=== PATIENT | female | born 1950 | race Caucasian/White ===

== ENCOUNTER 2018-08-01 17:02 | Emergency (ER) | payer MEDICARE, OTHER ==
[~2018-08-01] VITALS: Ht 162.6 cm; Wt 136.1 kg
[2018-08-01] MEDS ORDERED: OLMESARTAN-HCT1 EAC1 PO (17:18)
[2018-08-01] MEDS ORDERED: LEVSOD125 PO (17:18)
[2018-08-01] MEDS ORDERED: AMLO5 PO (17:19)
[2018-08-01] MEDS ORDERED: Norco 5-325 Ta1 EACH PO (20:07)
[2018-08-01] MEDS ORDERED: IBUP600 PO (20:07)
== END 2018-08-01 20:23 | disposition home or self-care (01) ==
LOC: ER 17:02
DX: S43.014A Anterior dislocation of right humerus, initial encounter (principal); Z79.899 Other long term (current) drug therapy; W19.XXXA Unspecified fall, initial encounter
CPT/HCPCS: 23650; 73020; 73030; 99152; 99283-25; J7030

== ENCOUNTER 2019-03-04 10:02 | Inpatient (IN) | payer MEDICARE, OTHER ==
[~2019-03-04] VITALS: Ht 162.6 cm; Wt 131.5 kg
[~2019-03-04 10:02] MED LIST: AMLO5 PO; Diovan Hct 1601 EACH PO; IBUP600 PO; LEVSOD125 PO; Norco 5-325 Ta1 EACH PO; OLMESARTAN-HCT1 EAC1 PO; [UNRECOGNIZED DRUG - OTHER] PO
--- NOTE | 2019-03-04 11:41 | NUR ---
Ambulatory in Day Surgery History, Chart, Medications and Allergies reviewed before start of procedure. Lungs clear T/O to Auscultation. Patient confirms NPO status and agrees with scheduled surgery. Pre-Op teaching done. Pt verbalizes understanding.
[2019-03-04 17:45] LABS: Hematocrit 29.7 % (33.0-51.0); Hemoglobin 9.6 g/dL (11.5-16.0)
--- NOTE | 2019-03-05 04:30 | NUR ---
SHIFT SUMMARY PT IS POD#1 R SHOULDER REPAIR. DRESSINGS ARE C/D/I. PT DENIES PAIN, C/O INTERMITTENT NAUSEA WITH TWO EPISODES OF VOMITING THIS SHIFT, RELIEF ACHIEVED WITH IV MEDICATION PER ORDERS. BP TRENDING HYPO THIS SHIFT, PT IS ASYMPTOMATIC, O2 SATS >90% ON 2L. PT HAS HX OF SLEEP APNEA, MAINTAINED O2 SATS >96% ON RA VIA CPAP DURING SLEEP. HEART RATE OCCASIONALLY DROPS TO 49-50 BPM WHILE ASLEEP, RETURNS TO BASELINE UPON AWAKENING. PT REQUIRES SBA TO BATHROOM, PT IS CONTINENT OF BOWEL AND BLADDER AND DOES NOT USE ASSISTIVE DEVICES AT BASELINE. TOLERATING SMALL AMOUNTS OF CLEAR LIQUIDS AT THIS TIME.
[2019-03-05 05:00] LABS: BASOPHILS PERCENT AUTO 0 % (0-2); EOSINOPHILS PERCENT AUTO 0 % (0-6); Hematocrit 24.3 % (33.0-51.0); Hemoglobin 7.8 g/dL (11.5-16.0); IMMATURE GRAN ABSOLUTE AUTO 0.04 K/mm3 (0.00-0.10); IMMATURE GRAN PERCENT AUTO 0 % (0-1); LYMPHOCYTES ABSOLUTE AUTO 0.47 K/mm3 (0.84-5.20); LYMPHOCYTES PERCENT AUTO 4 % (21-46); MONOCYTES ABSOLUTE AUTO 0.46 K/mm3 (0.16-1.47); MONOCYTES PERCENT AUTO 4 % (4-13); Mean Corpuscular HGB 27.4 pg (26.0-34.0); Mean Corpuscular HGB Conc 32.1 g/dL (31.5-36.5); Mean Corpuscular Volume 85 fL (80-100); NEUTROPHILS ABSOLUTE AUTO 9.75 K/mm3 (1.96-9.15); NEUTROPHILS PERCENT AUTO 91 % (41-73); Platelet Count 259 K/mm3 (150-400); RDW Coefficient Variation 13.5 % (11.7-14.2); RDW Standard Deviation 42.2 fL (35.1-46.3); Red Blood Cell Count 2.85 M/mm3 (3.80-5.20); White Blood Cell Count 10.72 K/mm3 (4.00-11.30)
[2019-03-05 05:37] LABS: Magnesium, Blood 1.9 mg/dL (1.6-2.4)
[2019-03-05 05:38] LABS: Anion Gap 8 mmol/L (6-16); Blood Urea Nitrogen 19 mg/dL (8-24); Bun/Creatinine Ratio 20.3 (12.0-20.0); CO2, Blood 23 mmol/L (21-32); Calcium, Blood 8.2 mg/dL (8.5-10.1); Chloride, Blood 100 mmol/L (98-108); Creatinine, Blood 0.94 mg/dL (0.40-1.00); Glomerular Filtration Rate >60 (60-); Glucose, Blood 197 mg/dL (70-99); Potassium, Blood 4.6 mmol/L (3.5-5.5); Sodium, Blood 131 mmol/L (136-145)
--- NOTE | 2019-03-05 08:48 | NUR ---
THERAPY WORKING WITH PT.
--- NOTE | 2019-03-05 10:42 | NUR ---
PHYSICAL THERAPY RECENTLY WORKED WITH PT.
--- NOTE | 2019-03-05 13:35 | NUR ---
PHYSICAL THERAPY HERE TO WORK WITH PT.
--- NOTE | 2019-03-05 13:41 | NUR ---
PT EATING AND DRINKING, VOIDING. PT BEEN ASSISTED WITH ADL'S PRN. PT BEEN ENC TO ELEVATE LEGS. PT BEEN REPORTING PAIN TOLERABLE. PT HAS SHOULDER IMMOBILIZER TO R ARM. PT BEEN UP TO CHAIR SINCE THIS AM. OTHER RN S.W. TO ASSUME CARE.
--- NOTE | 2019-03-05 14:12 | NUR ---
THERAPY REPORTED CLEARED TO GO HOME AND THAT PT WILL HAVE FAMILY/FRIEND RISK CONTROL MANAGER NEW CANE TO USE AT HOME.
--- NOTE | 2019-03-05 15:05 | NUR ---
OTHER NINOSKA Feliciano GIVEN REPORT AND IS ASSUMING CARE OF PT AT THIS TIME.
[2019-03-05] MEDS ORDERED: OXYC5 PO (15:55)
[2019-03-05] MEDS ORDERED: ASPI325 PO (15:56)
--- NOTE | 2019-03-05 16:53 | NUR ---
DISCHARGE SUMMARY PT A&OX4, VSS, LEFT FLOOR VIA WC WITH RN TO GO HOME WITH NEIGHBOR WITH PERSONAL POSSESSIONS AND DISCHARGE PACKET WITH 1 NARC SCRIPT AND 2 AQUACEL DRESSINGS. DISCHARGE INSTRUCTIONS PROVIDED. PT REP UNDERSTANDING THOSE INSTRUCTIONS INCLUDING FU APPT WITH SURGEON 2 WKS, ASA BID X2WKS, SHOWER OK, NO TUB/JACUZZI, WEAR IMMOBILIZER AT ALL TIMES/NWB, AQUACEL DRESSING CHANGES Q5-7 DAYS. IV DC'D.
== END 2019-03-05 16:48 | disposition home or self-care (01) | DRG 483 ==
LOC: SURS 10:02 → PRE IP 11:30 → SURS 19:10
PROVIDERS: Anesthesiology; ADMIT Orthopaedic Surgery
PROC: 0RRJ00Z Replacement of Right Shoulder Joint with Reverse Ball and Socket Synthetic Substitute, Open Approach (ICD-10-PCS; principal; 2019-03-04 12:00)
DX: S42.141A Displaced fracture of glenoid cavity of scapula, right shoulder, initial encounter for closed fracture (principal); Z68.42 Body mass index [BMI] 45.0-49.9, adult; M24.411 Recurrent dislocation, right shoulder; I10 Essential (primary) hypertension; E03.9 Hypothyroidism, unspecified; G47.33 Obstructive sleep apnea (adult) (pediatric); E66.01 Morbid (severe) obesity due to excess calories; Z79.899 Other long term (current) drug therapy
CPT/HCPCS: 36415; 73030; 80048; 83735; 85014; 85018; 85025; 88304; 88311; 94660; 94762; 97110; 97116; 97161; 97165; 97535; C1776; J0171; J0690; J0735; J1100; J1885; J2250; J2405; J2550; J2704; J2765; J2795; J3010; J7120

== ENCOUNTER → 2019-06-29 | Outpatient (CLI) | payer MEDICARE, OTHER ==
[~2019-06-29] MED LIST changes: +ASPI325 PO; +OXYC5 PO
[2019-07-03 14:38] LABS: Stool Occult Bld Immuno 1 Positive (NEGATIVE)
== END | disposition home or self-care (01) ==
LOC: LAB 13:48 → LAB SHORT 13:48
PROVIDERS: Internal Medicine Gastroenterology
DX: Z09 Encounter for follow-up examination after completed treatment for conditions other than malignant neoplasm (principal); Z86.010 Personal history of colon polyps
CPT/HCPCS: 82274

== ENCOUNTER 2019-09-22 11:35 | Day surgery (SDC) | payer MEDICARE, OTHER ==
[~2019-09-22] VITALS: Ht 162.6 cm; Wt 118.4 kg
[~2019-09-22 11:35] MED LIST changes: +ACET500 PO; +IRON PO; +LEVSOD100 PO; +LOSARTAN-HCTZ1 EAC1 PO; +NAPR220 PO
--- NOTE | 2019-09-22 13:00 | NUR ---
09/22/19 1300 ANITA ALCANTARA E O2 VIA NON-REBREATHER MASK PER DR. LUNA PREFERENCE.
== END 2019-09-22 13:38 | disposition home or self-care (01) ==
LOC: ORSCSDS 11:35
PROVIDERS: Internal Medicine Gastroenterology
PROC: 0DJD8ZZ Inspection of Lower Intestinal Tract, Via Natural or Artificial Opening Endoscopic (ICD-10-PCS; principal; 2019-09-22 13:00)
DX: D50.9 Iron deficiency anemia, unspecified (principal); K62.5 Hemorrhage of anus and rectum; K57.30 Diverticulosis of large intestine without perforation or abscess without bleeding; K64.8 Other hemorrhoids; G47.33 Obstructive sleep apnea (adult) (pediatric); E66.01 Morbid (severe) obesity due to excess calories; Z68.42 Body mass index [BMI] 45.0-49.9, adult; I10 Essential (primary) hypertension; E03.9 Hypothyroidism, unspecified; Z79.899 Other long term (current) drug therapy
CPT/HCPCS: J2250; J2704; J7120

== ENCOUNTER → 2022-01-11 | Outpatient (CLI) | payer MEDICARE, OTHER | END | disposition home or self-care (01) | LOC: LAB 11:16 → LAB SHORT 11:16 | DX: B37.3 Candidiasis of vulva and vagina (principal); R30.0 Dysuria; R30.9 Painful micturition, unspecified | CPT/HCPCS: 87086 ==

== ENCOUNTER → 2022-06-26 | Outpatient (CLI) | payer MEDICARE, OTHER ==
[2022-06-26 13:58] LABS: Source, Urine Clean Catch
[2022-06-26 14:14] LABS: Appearance, Urine Hazy (Clear); Bilirubin, Urine Neg (Neg); Blood, Urine 2+ (Neg); Color, Urine Yellow (P-Yellow); Glucose Qualitative, Urine Neg (Normal); Ketones, Urine Neg (Neg); Leukocyte Esterase, Urine Neg (Neg); Nitrite, Urine Neg (Neg); Protein, Urine Neg (Neg); Specific Gravity, Urine 1.005 (1.003-1.022); Urobilinogen, Urine NORM (Normal); White Blood Cells, Urine Not Seen /hpf (0-5)
[2022-06-26 14:15] LABS: Squamous Epithelial Cells Rare /hpf (Few)
[2022-06-26 14:25] LABS: Bacteria Not Seen /hpf
== END | disposition home or self-care (01) ==
LOC: LAB SHORT 13:10 → LAB 13:10
PROVIDERS: Physician Assistant
DX: R31.9 Hematuria, unspecified (principal)
CPT/HCPCS: 81001